=== PATIENT | male | born 1995 | race Caucasian/White ===

== ENCOUNTER 2017-01-21 00:22 | Emergency (ER) | payer OTHER ==
[2017-01-21 00:42] VITALS: BMI 31.2
[2017-01-21] MEDS ORDERED: TORADOL 30 MG VIAL IVP ONE (01:57)
[2017-01-21] MEDS ORDERED: NS 1000 ML 1,000 ML ONE (01:58)
[2017-01-21] MEDS ORDERED: NS 1000 ML 1,000 ML IV SCH (02:00)
--- NOTE | 2017-01-21 02:02 | DR.ABDMALE ---
HPI - Time seen Time seen: 01:50 - Complaint Chief Complaint Doctors Comments: Patient was seen in [place] earlier today given medication but not getting any better. Patient c/o RUQ pain. Denies any surgery. Had a spider bite two days ago on antibiotic. Chief Complaint:: PAIN IN RUQ. HAD STARTED HURTING 3 DAYS AGO AFTER NOTICING SORE TO LEFT ELBOW. Self Treatment fo Chief Complaint: ANTI-BACTERIA CREAM. ANTIBIOTIC PO - Mode of arrival Mode of Arrival: Ambulatory - Timing Onset of Chief Complaint: 01/18/17 PMH - PMH Past Medical History: No Past Surgical History: No - Family History History of Family Medical Conditions: Yes Family Medical History: [place], Hypertension - Social History Does patient currently use any type of tobacco product: Yes Have you used tobacco products in the last 12 months: Yes Type of Tobacco Use: DIP How many years tobacco product used: 6 Does any household member use tobacco: Yes Alcohol Use: None Do you use any recreational Drugs:: No Lives With: Family Lives Where: Home - infectious screening In the last 2 months have you had wt loss of >10#?: NO Have you had fever, night sweats or hemotysis?: No Have you traveled outside the country in the last 6 months?: No Isolation: Standard ROS - Review of Systems Eyes: No Symptoms Reported ENTM: No Symptoms Reported Respiratoy: No Symptoms Reported Cardiovascular: No Symptoms Reported Gastrointestinal/Abdominal: No Symptoms Reported Genitourinary: No Symptoms Reported Neurological: No Symptoms Reported Musculoskeletal: Other Integumentary: Lesions (spider bite right arm, scabbed) Hematologic/Lymphatic: No Symptoms Reported Endocrine: No Symptoms Reported Psychiatric: No Symptoms Reported All Other Systems: Reviewed and Negative PE - Vital Signs Vital Signs: Temp Pulse Resp BP Pulse Ox 01/21/17 00:31 99.5 F 116 H 22 155/100 100 - General Limitations: No Limitations General Appearance: Alert, Anxious - Head Head Exam: Normal Inspection, Atraumatic - Eyes Eye exam: Normal Appearance, PERRL, EOMI - ENT ENT Exam: Normal Exam - Neck Neck Exam: Normal Inspection, Full ROM - Chest Chest Inspection: Normal Inspection - Respiratory Respiratory Exam: Normal Lung Sounds Bilat Respiratory Exam: Bilateral Clear to Auscultation - Cardiovascular Cardiovascular Exam: Regular Rate, Normal Rhythm - Abdominal Exam Abdominal Exam: Normal Inspection, Normal Bowel Sounds Abdominal Tenderness: RLQ (tenderness) - Rectal Rectal Exam: Deferred - Back Back Exam: Normal Inspection, Full ROM - Extremeties Extremities Exam: Normal Inspection, Full ROM - Exam: Male: Normal Inspection - Neurologic Neurological Exam: Alert, Oriented X3, CN II-XII Intact - Psychiatric Psychiatric Exam: Normal Affect - Skin Skin Exam: Warm, Dry, Intact ROR - Labs Reviewed Result Diagrams: 01/21/17 02:09 01/21/17 02:09 Laboratory: WBC 14.2 X10^3/uL (3.6-10.0) H 01/21/17 02:09 RBC 4.93 X10^6/uL (4.7-6.0) 01/21/17 02:09 Hgb 14.3 g/dL (13.5-18.0) 01/21/17 02:09 Hct 41.2 % (42.0-54.0) L 01/21/17 02:09 MCV 83.5 fL (80.0-100.0) 01/21/17 02:09 MCH 28.9 pg (27.0-34.0) 01/21/17 02:09 MCHC 34.7 g/dL (33.0-35.0) 01/21/17 02:09 RDW 13.2 % (11.6-16.5) 01/21/17 02:09 Plt Count 167 X10^3/uL (150.0-450.0) 01/21/17 02:09 MPV 9.6 fL (7.4-11.0) 01/21/17 02:09 Neut % 80.1 % (42.0-75.0) H 01/21/17 02:09 Lymph % 8.9 % (21.0-51.0) L 01/21/17 02:09 [place] % 9.1 % (0.0-13.0) 01/21/17 02:09 Eos % 1.6 % (0.9-2.9) 01/21/17 02:09 Baso % 0.3 % (0.2-1.0) 01/21/17 02:09 Neut # 11.4 x10^3/uL (2.2-4.8) H 01/21/17 02:09 Lymph # 1.3 X10^3/uL (1.3-2.9) 01/21/17 02:09 [place] # 1.3 x10^3/uL (0.3-0.8) H 01/21/17 02:09 Eos # 0.2 x10^3/uL (0.0-0.2) 01/21/17 02:09 Baso # 0.0 X10^3/uL (0.0-0.1) 01/21/17 02:09 Absolute Nucleated RBC 0.3 /100WBC 01/21/17 02:09 Sodium 137 mmol/L (136-145) 01/21/17 02:09 Corrected Sodium 137 mmol/L (136-145) 01/21/17 02:09 Potassium 3.4 mmol/L (3.5-5.1) L 01/21/17 02:09 Chloride 102 mmol/L (98-107) 01/21/17 02:09 Carbon Dioxide 28.5 mmol/L (21-32) 01/21/17 02:09 BUN 9 mg/dL (7-18) 01/21/17 02:09 Creatinine 0.94 mg/dL (0.70-1.30) 01/21/17 02:09 Est GFR (MDRD) Af Amer > 60 (>60) 01/21/17 02:09 Est GFR (MDRD) Non-Af > 60 (>60) 01/21/17 02:09 Glucose 111 mg/dL (65-99) H 01/21/17 02:09 Calcium 9.2 mg/dL (8.5-10.1) 01/21/17 02:09 C-Reactive Protein 59.00 mg/L (0-3.0) H 01/21/17 02:09 Specimen Type Clean catch urine 01/21/17 02:45 Urine Color Yellow (YELLOW) 01/21/17 02:45 Urine Appearance Clear (CLEAR) 01/21/17 02:45 Urine pH 6.0 (5.0 - 8.0) 01/21/17 02:45 Ur Specific [place] 1.015 (1.000-1.030) 01/21/17 02:45 Urine Protein Negative (NEGATIVE) 01/21/17 02:45 Urine Glucose (UA) Negative (NEGATIVE) 01/21/17 02:45 Urine Ketones Negative (NEGATIVE) 01/21/17 02:45 Urine Occult Blood Negative (NEGATIVE) 01/21/17 02:45 Urine Nitrite Negative (NEGATIVE) 01/21/17 02:45 Urine Bilirubin Negative (NEGATIVE) 01/21/17 02:45 Urine Urobilinogen Normal (NORMAL) 01/21/17 02:45 Ur Leukocyte Esterase 2+ (NEGATIVE) 01/21/17 02:45 Urine RBC None seen /HPF (NEGATIVE) 01/21/17 02:45 Urine WBC 0-3 /HPF (NEGATIVE) 01/21/17 02:45 Ur Squamous Epith Cells Rare /HPF (NEGATIVE) 01/21/17 02:45 Urine Bacteria Negative /HPF (NEGATIVE) 01/21/17 02:45 Ur Culture Indicated? No/not indicated 01/21/17 02:45 - XRAY XRAY Interpreted by: Radiologist (CT Abdo/Pelv: Mild thickening of the distal esophagus, clinical correlation is needed as this potentially represents a esophagitis) - Diagnosis Discharge Problem: Esophagitis - Discharge Plan Condition: Stable - Follow ups/Referrals Follow ups/Referrals: NFD,None [Primary Care Provider] - 3 days - Instructions
[2017-01-21] MEDS ORDERED: TORADOL 30 MG VIAL ONE (02:07)
[2017-01-21 02:29] LABS: BASOPHILS % (AUTO) 0.3 % (0.2-1.0); EOSINOPHILS # (AUTO) 0.2 x10^3/uL (0.0-0.2); EOSINOPHILS % (AUTO) 1.6 % (0.9-2.9); HEMATOCRIT 41.2 % (42.0-54.0); HEMOGLOBIN 14.3 g/dL (13.5-18.0); LYMPHOCYTES # (AUTO) 1.3 X10^3/uL (1.3-2.9); LYMPHOCYTES % (AUTO) 8.9 % (21.0-51.0); MEAN CORPUSCULAR HEMOGLOBIN 28.9 pg (27.0-34.0); MEAN CORPUSCULAR HGB CONC 34.7 g/dL (33.0-35.0); MEAN CORPUSCULAR VOLUME 83.5 fL (80.0-100.0); MEAN PLATELET VOLUME 9.6 fL (7.4-11.0); MONOCYTES # (AUTO) 1.3 x10^3/uL (0.3-0.8); MONOCYTES % (AUTO) 9.1 % (0.0-13.0); NEUTROPHILS # (AUTO) 11.4 x10^3/uL (2.2-4.8); NEUTROPHILS % (AUTO) 80.1 % (42.0-75.0); PLATELET COUNT 167 X10^3/uL (150.0-450.0); RED BLOOD COUNT 4.93 X10^6/uL (4.7-6.0); RED CELL DISTRIBUTION WIDTH 13.2 % (11.6-16.5); WHITE BLOOD COUNT 14.2 X10^3/uL (3.6-10.0)
[2017-01-21 02:35] LABS: BLOOD UREA NITROGEN 9 mg/dL (7-18); CALCIUM 9.2 mg/dL (8.5-10.1); CARBON DIOXIDE 28.5 mmol/L (21-32); CHLORIDE 102 mmol/L (98-107); COR NA(FOR HYPERGLY) 137 mmol/L (136-145); CREATININE 0.94 mg/dL (0.70-1.30); SODIUM 137 mmol/L (136-145); eGFR BLACK RACES > 60 (>60); eGFR NON BLACK RACES > 60 (>60)
[2017-01-21] MEDS ORDERED: MORPHINE SULFATE INJ 4 MG IVP ONE (02:45)
[2017-01-21 02:53] LABS: BILIRUBIN,URINE NEGATIVE (NEGATIVE); BLOOD/HEMOGLOBIN,URINE NEGATIVE (NEGATIVE); GLUCOSE, URINE NEGATIVE (NEGATIVE); KETONES,URINE NEGATIVE (NEGATIVE); LEUKOCYTE ESTERASE ,URINE 2+ (NEGATIVE); NITRITES,URINE NEGATIVE (NEGATIVE); PROTEIN,URINE NEGATIVE (NEGATIVE); UROBILINOGEN,URINE NORMAL (NORMAL)
[2017-01-21 03:01] LABS: APPEARANCE,URINE CLEAR (CLEAR); BACTERIA,URINE NEGATIVE /HPF (NEGATIVE); COLOR,URINE YELLOW (YELLOW); RBC,URINE NONE SEEN /HPF (NEGATIVE); SQUAMOUS EPITHELIAL CELL,UR RARE /HPF (NEGATIVE)
[2017-01-21] MEDS ORDERED: NS 100 ML IV 100 ML IV ONE (04:30)
--- NOTE | 2017-01-21 05:33 | CT ---
CT abdomen and pelvis with contrast Indication: Right upper quadrant pain Comparison: None available Technique: Multiple axial images of the abdomen and pelvis were obtained from the lung bases to the pubic symphy sis after the administration of IV contrast. Findings: The lung bases are clear aside for mild atelectasis within the right lower lobe. No focal hepatic le judith. The gallbladder, bile ducts, spleen, pancreas and adrenal glands are normal. Neither kidney d emonstrates evidence of nephrolithiasis or hydronephrosis. No mass. Upper GI tract without evidence of mass or obstruction. There appears to mild thickening of the esophagus is representing esophagit is in the proper clinical setting. Urinary bladder is normal. Prostate gland is normal. The rectum ankle are normal. Bases unremarkable. No pelvic free fluid or adenopathy. Abdominal aorta is norm al in caliber. Review of bone windows demonstrates no acute osseous abnormality. Bilateral L5 spond ylolysis is noted without spondylolisthesis. Impression: 1.Mild thickening of the distal esophagus, clinical correlation is needed as this potentially represe nts a esophagitis. 2. The appendix is normal. 3. Chronic bilateral L5 spondylolysis without spondylolisthesis. Reported By:
[2017-01-21 06:44] VITALS: BP 113/71
== END 2017-01-21 06:41 | disposition home or self-care (01) ==
LOC: ER 00:22
DX: K20.9 Esophagitis, unspecified (principal); R10.11 Right upper quadrant pain
CPT/HCPCS: 36415; 74177; 80048; 81001; 85025; 86140; 96365; 96367; 96374; 99283; A4222; J1885